=== PATIENT | female | born 1955 | race Caucasian/White ===

== ENCOUNTER → 2020-09-04 | Day surgery (SDC) | payer OTHER ==
[~2020-09-04] VITALS: Ht 170.1 cm; Wt 75.7 kg
[~2020-09-04] MED LIST: ANASTROZOLE1 M1 PO; COREG6.25 MG PO; CYMBALTA30 MG PO; ERTAPENEM1 GM IV; LISINOPRIL10 M1 PO; NORCO PO; ONE-DAILY MULT1 EAC1 PO; PROTONIX40 MG PO; REMERON30 M1 PO; SLOW-MAG71.5 MG PO; TRAMADOL HCL50 MG PO; VANCOMYCIN750 MG/152 IV; VISTARIL50 MG PO; XARELTO10 MG PO; ZESTRIL10 MG PO
[2020-09-04 07:00] VITALS: BP 113/88
[2020-09-04 09:17] VITALS: BP 93/37
[2020-09-04 09:32] VITALS: BP 102/45
[2020-09-04 09:47] VITALS: BP 138/65
[2020-09-04 10:15] VITALS: BP 148/82
[2020-09-05 12:07] LABS: ACID FAST SPEC PROCESSING Tissue Grinding (.)
[2020-09-05 12:07] LABS: ACID FAST SPEC PROCESSING Tissue Grinding (.)
[2020-09-05 12:07] LABS: ACID FAST SPEC PROCESSING Tissue Grinding (.)
== END | disposition home or self-care (01) ==
LOC: SDC 08-30 10:15
PROVIDERS: Podiatrist; ATTEND Podiatrist Foot & Ankle Surgery
DX: L89.520 Pressure ulcer of left ankle, unstageable (principal); M86.8X7 Other osteomyelitis, ankle and foot; L89.510 Pressure ulcer of right ankle, unstageable; I73.9 Peripheral vascular disease, unspecified; I11.0 Hypertensive heart disease with heart failure; I50.9 Heart failure, unspecified; F41.9 Anxiety disorder, unspecified; Z85.3 Personal history of malignant neoplasm of breast; F32.9 Major depressive disorder, single episode, unspecified

== ENCOUNTER → 2020-09-25 | Day surgery (SDC) | payer OTHER ==
[2020-09-25 08:26] VITALS: BP 115/45
[2020-09-25 11:06] VITALS: BP 111/47
[2020-09-25 11:21] VITALS: BP 134/37
[2020-09-25 11:36] VITALS: BP 135/55
[2020-09-26 14:08] LABS: ACID FAST SPEC PROCESSING Tissue Grinding (.)
[2020-09-26 14:08] LABS: ACID FAST SPEC PROCESSING Tissue Grinding (.)
[2020-09-26 14:08] LABS: ACID FAST SPEC PROCESSING Tissue Grinding (.)
[2020-09-26 14:08] LABS: ACID FAST SPEC PROCESSING Tissue Grinding (.)
== END | disposition home or self-care (01) ==
LOC: SDC 09-16 11:00
PROVIDERS: ATTEND Podiatrist
DX: M86.8X7 Other osteomyelitis, ankle and foot (principal); I11.0 Hypertensive heart disease with heart failure; I50.23 Acute on chronic systolic (congestive) heart failure

== ENCOUNTER → 2020-10-09 | Day surgery (SDC) | payer OTHER ==
[~2020-10-09] VITALS: Ht 170.1 cm; Wt 75.7 kg
[2020-10-09] VITALS (7 sets, daily range): BP systolic 96–118; BP diastolic 26–73
[~2020-10-09] MED LIST changes: +DOXYCYCLINE100 M3 PO
[2020-10-10 14:08] LABS: ACID FAST SPEC PROCESSING Tissue Grinding (.)
[2020-10-10 14:08] LABS: ACID FAST SPEC PROCESSING Tissue Grinding (.)
[2020-10-11 15:07] LABS: ACID FAST SPEC PROCESSING Tissue Grinding (.)
== END | disposition home or self-care (01) ==
LOC: SDC 10-07 14:00
PROVIDERS: ATTEND Podiatrist
DX: M86.8X7 Other osteomyelitis, ankle and foot (principal); S91.302A Unspecified open wound, left foot, initial encounter; F41.9 Anxiety disorder, unspecified; I50.9 Heart failure, unspecified; I73.9 Peripheral vascular disease, unspecified; Z85.3 Personal history of malignant neoplasm of breast; I11.0 Hypertensive heart disease with heart failure; X58.XXXA Exposure to other specified factors, initial encounter; Y93.89 Activity, other specified; Y92.89 Other specified places as the place of occurrence of the external cause; Y99.8 Other external cause status